=== PATIENT | male | born 1975 | race Two or more races ===

== ENCOUNTER 2018-08-25 22:30 | Emergency (ER) | payer SELFPAY ==
[~2018-08-25] VITALS: Ht 167.6 cm; Wt 78.0 kg
[2018-08-26] MEDS ORDERED: cefTRIAXone SOD 1,000 MG VL IM ONE (00:45)
[2018-08-26] MEDS ORDERED: AMOXICILLIN/CLAVUL 875 MG TAB PO ONE (00:45)
[2018-08-26] MEDS ORDERED: LIDOCAINE W/ EPINEPHRINE 2% INJ 20ML VIAL IJ ONE (00:45)
[2018-08-26 01:26] VITALS: BP 134/74
[2018-08-26] MEDS ORDERED: BACITRACIN TOP OINT 1 UD PKG TOP ONE (02:15)
[2018-08-26] MEDS ORDERED: HYDROcodone-ACET 10/325MG TAB PO ONE (02:15)
== END 2018-08-26 02:22 | disposition home or self-care (01) ==
LOC: ER 22:35
DX: S61.411A Laceration without foreign body of right hand, initial encounter (principal); W54.0XXA Bitten by dog, initial encounter; Y93.89 Activity, other specified; Y99.8 Other external cause status; Y92.89 Other specified places as the place of occurrence of the external cause
CPT/HCPCS: 12001; 73120; 96372; 99283; J0696